=== PATIENT | male | born 1980 | race Caucasian/White ===

== ENCOUNTER 2020-06-28 12:37 | Emergency (ER) | payer MEDICARE, SELFPAY ==
[2020-06-28 12:44] VITALS: BP 160/98; PULSE 105; RESP 18; TEMP 36.6; O2SAT 100; BMI 36.6
--- NOTE | 2020-06-28 12:55 | ED_ITS ---
HPI - General Adult General: Chief complaint: General Medical Stated complaint: High HR, HTN, R leg pain Time Seen by Provider: 06/28/20 12:55 History of Present Illness: HPI narrative: Patient is a 39-year-old male who comes to the ED with multiple complaints. Patient has been having some chest pain for the past 3 to 4 days. Chest pain is mild and he describes it is constant and it does not get any worse when active. Patient did have Covid this month and says since recovering he has been having these symptoms of shortness of breath and chest pain. Shortness of breath occurs when he is up and active and moving around. Patient has albuterol inhaler that he uses as needed for shortness of breath. Endorses a dry cough. He did state that since he got Covid for the past month he has not been very active and has been doing a lot of sitting and laying down. He is complaining of nontraumatic right leg pain that started yesterday. He says pain is in the back of his right thigh just above his knee. Denies any history of blood clots or DVTs. His PCP just recently diagnosed him with hypertension and his heart rate was elevated and prescribed him some atenolol. He has not started taking atenolol yet. He is also complained of having some episodes of right arm numbness and tingling that lasts for approximately an hour. Denies any recent fever, chills, nausea/vomiting, abdominal pain, bladder or bowel symptoms. Associated symptoms: Reports chest pain and dyspnea; Deny headache(s), nausea, rash, palpitations or vomiting Review of Systems Const: Denies: fever(s), chills or fatigue Eyes: Denies: change in vision or eye discomfort ENMT: Denies: throat pain, odynophagia, nasal discharge or nasal congestion Card: Reports: chest pain; Denies: palpitations, edema, swelling of feet/ankles, dyspnea on exertion or orthopnea Resp: Reports: dyspnea and non-productive cough; Denies: productive cough GI: Denies: abdominal pain, nausea, vomiting, diarrhea, constipation or hematochezia : Denies: flank pain, difficulty urinating, dysuria or hematuria Musc: Reports: extremity pain (right leg pain non acute); Denies: neck pain, back pain or extremity swelling Skin/Breast: Denies: rash or new lesions Neuro: Denies: headache(s), numbness in extremities or weakness in extremities PFSH ED PFSH: Social History Smoking and tobacco status: never smoked Alcohol intake: never Substance/Drug Use: never Physical Exam Const: COMMON NORMALS: no acute distress, patient oriented x3 and alert GENERAL APPEARANCE: cooperative and comfortable HENMT: COMMON NORMALS: normocephalic HEAD & SCALP: normocephalic MOUTH: Normal oral and palatal mucosa present THROAT: posterior oropharynx normal and uvula midline Neck/C-Spine: COMMON NORMALS: supple GENERAL: Yes normal visual inspection Resp: COMMON NORMALS: normal respiratory effort, No retractions, No use of accessory muscles and clear to auscultation bilaterally EFFORT & INSPECTION: Yes able to speak in complete sentences, No tachypneic, No respiratory distress and No labored AUSCULTATION: clear to auscultation bilaterally Cardio: COMMON NORMALS: regular rate, regular rhythm, S1 normal heart sound present, S2 normal heart sound present, No gallops present (Cardio), No clicks present (Cardio), No murmurs present (Cardio) and Peripheral pulses 2+ throughout RATE: regular rate RHYTHM: regular rhythm HEART SOUNDS: S1 normal heart sound present and S2 normal heart sound present PERIPHERAL PULSES: Peripheral pulses 2+ throughout GI: COMMON NORMALS: Normal to inspection, nondistended, normoactive bowel sounds present, Soft to palpation, non-tender and no masses PALPATION: Yes Soft to palpation : COMMON NORMALS: Yes no CVA tenderness BLADDER/KIDNEY EXAM: Yes no CVA tenderness Back/Pelvis: COMMON NORMALS: no CVA tenderness Extremity: COMMON NORMALS: no calf tenderness and no pedal edema NARRATIVE EXTREMITY EXAM: Right leg?pedal pulse 2+. No edema seen. Some tenderness in posterior aspect of right thigh just superior to the knee. GENERAL: Yes normal exam except as noted Neuro: COMMON NORMALS: patient oriented x3 and moves all extremities SENSORIUM/ORIENTATION: Yes alert Skin: GENERAL SKIN EXAM: dry skin Course Vital Signs: Vital signs: Vital Signs Temperature 97.8 F 06/28/20 12:44 Pulse Rate 81 06/28/20 16:39 Respiratory Rate 17 06/28/20 16:39 Blood Pressure 146/110 06/28/20 16:39 Pulse Oximetry 97 06/28/20 16:39 MDM - General Adult MDM Narrative: Medical decision making narrative: Patient is a 39-year-old male who comes to the ED with chest pain and some right lower extremity nontraumatic pain. Patient had COVID-19 earlier this month and since he is recovered from it he says he has chest pain and some shortness of breath. Patient appears in no acute distress or respiratory distress upon exam. Lungs were clear to auscultation bilaterally. Vitals stable. Chest x-ray shows no acute findings. CBC, CMP were unremarkable. D-dimer normal. EKG showed normal sinus rhythm and no signs of CO and troponin negative. CV venous duplex of right lower extremity showed no blood clots or DVTs. Patient does not currently have a PCP so I placed an order with case management for patient to be referred to PCP. Patient was diagnosed with noncardiac chest pain and I told him that I placed an order with case management and they should be contacting him in the next several days to set up an appointment with a PCP. Return to ED precautions given. Patient understood and agree with plan. Lab Data: Attestation: I reviewed the patient's lab results. Labs: Lab Results 06/28/20 06/28/20 06/28/20 Range/Units 14:00 14:00 14:00 WBC 7.7 (4.0-10.0) 10^3/ uL RBC 5.89 H (4.1-5.3) 10^6/u L Hgb 14.8 (11.7-16.6) g/dL Hct 47.1 (42.0-52.0) % MCV 80.0 (80-94) fL MCH 25.1 L (28.0-34.0) pg MCHC 31.4 (30.0-36.0) g/dL RDW 14.2 (12.1-15.1) % Plt Count 235 (130-400) 10^3/c mm MPV 10.3 (7.4-10.4) fL Neut % (Auto) 68.0 % Lymph % (Auto) 22.3 % [place] % (Auto) 6.1 % Eos % (Auto) 2.6 % Baso % (Auto) 0.4 % Neut # (Auto) 5.25 (1.8-7.7) 10^3/u L Lymph # (Auto) 1.7 (0.8-4.8) 10^3/u L [place] # (Auto) 0.5 (0.2-0.9) 10^3/u L Eos # (Auto) 0.2 (0.0-0.8) 10^3/u L Baso # (Auto) 0.0 (0.0-0.1) 10^3/u L Nucleated RBC % (a uto) 0 % Nucleated RBCs # 0.0 /100WBC D-Dimer <= 0.27 (0-0.59) ug/mIFE U Sodium 138 (136-145) mmol/L Potassium 4.1 (3.5-5.1) mmol/L Chloride 102 (98-107) mmol/L Carbon Dioxide 24 (22-29) mmol/L Anion Gap 16.1 (5-19) BUN 8 (6-20) mg/dL Creatinine 0.6 L (0.7-1.2) mg/dL GFR Calculation 151.6 H (90-130) mL/min Glucose 100 (65-115) mg/dL Calculated Osmolal ity 284 L (285-295) mOsm/k g Calcium 9.5 (8.5-10.5) mg/dL Total Bilirubin 0.8 (0.15-1.2) mg/dL AST 20 (0-40) U/L ALT 53 H (0-41) U/L Alkaline Phosphata se 156 H (40-130) IU/L Troponin T Baselin e (0-15) ng/L Total Protein 7.0 (6.6-8.7) g/dL Albumin 4.3 (3.5-5.2) g/dL Globulin 2.7 (1.3-4.6) g/dL 06/28/20 Range/Units 14:00 WBC (4.0-10.0) 10^3/ uL RBC (4.1-5.3) 10^6/u L Hgb (11.7-16.6) g/dL Hct (42.0-52.0) % MCV (80-94) fL MCH (28.0-34.0) pg MCHC (30.0-36.0) g/dL RDW (12.1-15.1) % Plt Count (130-400) 10^3/c mm MPV (7.4-10.4) fL Neut % (Auto) % Lymph % (Auto) % [place] % (Auto) % Eos % (Auto) % Baso % (Auto) % Neut # (Auto) (1.8-7.7) 10^3/u L Lymph # (Auto) (0.8-4.8) 10^3/u L [place] # (Auto) (0.2-0.9) 10^3/u L Eos # (Auto) (0.0-0.8) 10^3/u L Baso # (Auto) (0.0-0.1) 10^3/u L Nucleated RBC % (a uto) % Nucleated RBCs # /100WBC D-Dimer (0-0.59) ug/mIFE U Sodium (136-145) mmol/L Potassium (3.5-5.1) mmol/L Chloride (98-107) mmol/L Carbon Dioxide (22-29) mmol/L Anion Gap (5-19) BUN (6-20) mg/dL Creatinine (0.7-1.2) mg/dL GFR Calculation (90-130) mL/min Glucose (65-115) mg/dL Calculated Osmolal ity (285-295) mOsm/k g Calcium (8.5-10.5) mg/dL Total Bilirubin (0.15-1.2) mg/dL AST (0-40) U/L ALT (0-41) U/L Alkaline Phosphata se (40-130) IU/L Troponin T Baselin e 6 (0-15) ng/L Total Protein (6.6-8.7) g/dL Albumin (3.5-5.2) g/dL Globulin (1.3-4.6) g/dL Imaging Data^: CXR: Attestation: I personally reviewed and interpreted this imaging study as follows: Radiologist's impression: [address] [address] XRay Report Signed Patient: Sunday Zuniga Unit #: [id number] : 1980 Acct#:[id number] Age/Sex: 39 / M ADM Date: 06/28/20 Loc: ER Room/Bed: Attending Dr: Ordering Provider/Ordering MD: Ronnell Santos Date of Service: 06/28/20 Procedure(s): XR chest 1V portable [id number] Accession Number(s): [id number] Report Number: [id number] PROCEDURE INFORMATION: Exam: XR Chest, 1 View Exam date and time: 06/28/2020 1:27 PM Age: 39 years old Clinical indication: Chest pain; Additional info: Cp TECHNIQUE: Imaging protocol: XR of the chest Views: 1 view. COMPARISON: No relevant prior studies available. FINDINGS: Lungs: Unremarkable. No consolidation. Pleural spaces: Unremarkable. No pleural effusion. No pneumothorax. Heart/Mediastinum: Unremarkable. No cardiomegaly. Bones/joints: Unremarkable. XR/XR chest 1V portable [id number] IMPRESSION: No acute findings. Dictated By: Mark Wilder Signed By: Mark Wilder Signed Date/Time: 06/28/20 1355 DD/ 1354 Vascular: Attestation: I personally reviewed and interpreted this imaging study as follows: Radiologist's impression: Ultrasound venous duplex of right lower extremity?prelim report no DVTs or blood clots seen. EKG Data^: EKG 1: Attestation: I personally reviewed and interpreted this EKG as follows: EKG interpretation date: 06/28/20 Interpretation: Normal sinus rhythm, [address] segment elevation or depression seen. Computer generated interpretation: Chest X-Ray 06/28/20 13:18 IMPRESSION: No acute findings. Venous Duplex 06/28/20 13:18 IMPRESSION: No evidence of deep vein thrombosis. Discharge Plan Discharge Patient Disposition: Home Clinical Impression: Non-cardiac chest pain Condition: Stable Prescriptions: No Action albuterol sulfate 90 mcg/actuation HFA aerosol inhaler 2 puff INHALATION Q4H PRN (Reason: Shortness Of Breath) RF: 0 Discharge Orders: Discharge ED (Routine); Ordered 06/28/20 Ordered By: Ronnell Santos Discharge Diet: Regular Discharge Activity: Increase activity as tolerated Patient Instructions: Noncardiac Chest Pain (ED) Activity Restrictions/Additional Instructions: Follow-up with medical provider as directed. Case management should be contacting you in the next several days to set up an appointment with the PCP. Discuss with your doctor about your current symptoms and episodes of elevated heart rate. Return to the ER or your medical provider if condition worsens. Please read and understand discharge instructions. If any questions, please ask. Coding Level of Care Code ED Burring Wheel Operator for Santos Fwd Exam Comprehensive
[2020-06-28 13:01] VITALS: BP 114/96; PULSE 100; RESP 17; O2SAT 100
--- NOTE | 2020-06-28 13:18 | USR_ITS ---
PROCEDURE INFORMATION: Exam: US Duplex Right Lower Extremity Veins, Limited Exam date and time: 06/28/2020 1:59 PM Age: 39 years old Clinical indication: Pain; Leg, upper and leg, lower; Right; Additional info: Non traumatic right lower leg pain TECHNIQUE: Imaging protocol: Real-time Duplex ultrasound of the Right Lower Extremity with 2-D mcdonald scale, color Doppler flow and spectral waveform analysis with image documentation. Limited exam was focused on the right lower extremity veins. COMPARISON: No relevant prior studies available. FINDINGS: Right deep veins: Unremarkable. The common femoral, femoral, proximal profunda femoral and popliteal veins are patent without thrombus. Normal Doppler waveforms. Normal compressibility and/or augmentation response. Right superficial veins: Unremarkable. Saphenofemoral junction is patent without thrombus. Soft tissues: Unremarkable. US/[place] [id number] IMPRESSION: No evidence of deep vein thrombosis.
--- NOTE | 2020-06-28 13:18 | XRR_ITS ---
PROCEDURE INFORMATION: Exam: XR Chest, 1 View Exam date and time: 06/28/2020 1:27 PM Age: 39 years old Clinical indication: Chest pain; Additional info: Cp TECHNIQUE: Imaging protocol: XR of the chest Views: 1 view. COMPARISON: No relevant prior studies available. FINDINGS: Lungs: Unremarkable. No consolidation. Pleural spaces: Unremarkable. No pleural effusion. No pneumothorax. Heart/Mediastinum: Unremarkable. No cardiomegaly. Bones/joints: Unremarkable. XR/XR chest 1V portable [id number] IMPRESSION: No acute findings.
--- NOTE | 2020-06-28 13:19 | ECG_ITS ---
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 Measurements Intervals [place] Rate: 89 P: 10 GA: 177 QRS: -21 QRSD: 100 T: 25 QT: 339 QTc: 414 Interpretive Statements SINUS RHYTHM LOW QRS VOLTAGE IN PRECORDIAL LEADS [QRS DEFLECTION < 1.0 mV IN CHEST LEADS] VOLTAGE CRITERIA FOR LVH [MEETS CRITERIA IN ONE OF: R(aVL), S(V1), R(V5), R(V5/V6)+S(V1)] POSSIBLE ANTERIOR MYOCARDIAL INFARCTION , OF INDETERMINATE AGE [30 ms Q WAVE IN V3/V4, OR R < 0.2 mV IN V4] No previous ECG available for comparison Electronically Signed On 06-28-2020 16:57:37 JAVA FRONT END WEB DEVELOPER by Tamir Sheth M.D. [email or web address] [email or web address] issaqu[facility] community hospitalSn[email or web address]/store/[id number] f
[2020-06-28 13:30] VITALS: BP 131/90; PULSE 85; RESP 18; O2SAT 96
[2020-06-28 13:48] VITALS: BP 131/89; PULSE 83; RESP 16; O2SAT 97
[2020-06-28 14:22] LABS: Basophils % 0.4 %; Eosinophils # 0.2 10^3/uL (0.0-0.8); Eosinophils % 2.6 %; Hematocrit 47.1 % (42.0-52.0); Hemoglobin 14.8 g/dL (11.7-16.6); Lymphocytes # 1.7 10^3/uL (0.8-4.8); Lymphocytes % 22.3 %; Mean Corpuscular HGB Conc 31.4 g/dL (30.0-36.0); Mean Corpuscular Hemoglobin 25.1 pg (28.0-34.0); Mean Platelet Volume 10.3 fL (7.4-10.4); Monocytes # 0.5 10^3/uL (0.2-0.9); Monocytes % 6.1 %; Neutrophils # 5.25 10^3/uL (1.8-7.7); Nucleated Red Blood Cells % 0 %; Platelet Count 235 10^3/cmm (130-400); Red Blood Count 5.89 10^6/uL (4.1-5.3); Red Cell Distribution Width 14.2 % (12.1-15.1); White Blood Count 7.7 10^3/uL (4.0-10.0)
[2020-06-28] MEDS: lidocaine 2% viscous 15 ML, aluminum-mag hydrox-simethicon 30 ML, sucralfate oral liq 1 GM PO (14:26)
[2020-06-28 14:49] LABS: Alanine Aminotransferase 53 U/L (0-41); Albumin Level 4.3 g/dL (3.5-5.2); Alkaline Phosphatase 156 IU/L (40-130); Anion Gap 16.1 (5-19); Aspartate Amino Transferase 20 U/L (0-40); Blood Urea Nitrogen 8 mg/dL (6-20); Calcium 9.5 mg/dL (8.5-10.5); Carbon Dioxide 24 mmol/L (22-29); Chloride 102 mmol/L (98-107); Globulin 2.7 g/dL (1.3-4.6); Glomerular Filtration Rate 151.6 mL/min (90-130); Glucose 100 mg/dL (65-115); Osmolality Calculated 284 mOsm/kg (285-295); Potassium 4.1 mmol/L (3.5-5.1); Sodium 138 mmol/L (136-145); Total Bilirubin 0.8 mg/dL (0.15-1.2)
[2020-06-28 15:01] LABS: Troponin(5th) Baseline 6 ng/L (0-15)
[2020-06-28 15:54] LABS: D Dimer <= 0.27 ug/mIFEU (0-0.59)
[2020-06-28 16:39] VITALS: BP 146/110; PULSE 81; RESP 17; O2SAT 97
--- NOTE | 2020-06-29 14:59 | DCPLANNER ---
Addendum entered by Tamra Mancuso 06/29/20 15:07: Patients called social work case manager back, patient is needing to get established with a primary care physician. publication manager called [facility] in [facility], patient has a follow up appointment scheduled for Monday, July 06, 2020 at 9:[address] Johns. publication manager called patients and gave her the appointment information. Original Note: publication manager had message to speak with patient about getting established with a primary care physician. publication manager unable to speak with patient at this time.
--- NOTE | 2020-08-13 14:59 | DCPLANNER ---
Patient had a follow up appointment scheduled for 07.06.20 at [facility] - patient did not attend appointment.
== END 2020-06-28 16:40 | disposition home or self-care (01) ==
PROVIDERS: Emergency Provider Physician Assistant
DX: R07.89 Other chest pain (principal)
CPT/HCPCS: 12345; 71045; 80053; 84484; 85025; 85378; 93005; 93971; 99283; 99284

== ENCOUNTER 2022-05-02 11:13 | Emergency (ER) | payer MEDICARE, SELFPAY ==
[2022-05-02 11:41] VITALS: BP 153/98; PULSE 90; RESP 16; TEMP 36.6; O2SAT 98
--- NOTE | 2022-05-02 11:55 | XR_ITS ---
WS: [id number] PORTABLE CHEST HISTORY: thinks he has fish bone in his throat COMPARISON: 06/28/2020 No radiopaque foreign body noted along the midline of the chest or neck. Lungs are clear and well expanded. No pleural effusion or pneumothorax. Cardiac size: Normal. Mediastinum/Aorta: Normal mediastinum. No osseous abnormality seen. XR/XR chest 1V portable [id number] IMPRESSION: Unremarkable portable chest.
--- NOTE | 2022-05-02 12:16 | W.ED.GENADLT ---
HPI - General Adult General: Chief complaint: Airway/Esophagus Foreign Body Stated complaint: object in throat Time Seen by Provider: 05/02/22 11:55 History of Present Illness: Patient is a 41-year-old male who comes to the ED with throat complaint. Patient says he was eating some fish about a week ago and swallowed a bone. He has been having pain in the back of his throat since he swallowed fish with bone. He is able to eat and drink without any problems and his oral secretions are normal. Denies any trouble breathing. Associated symptoms: Deny chest pain, dyspnea, headache(s), nausea, rash, palpitations or vomiting Review of Systems Const: Denies: fever(s), chills or fatigue Eyes: Denies: change in vision or eye discomfort ENMT: Reports: odynophagia; Denies: throat pain, nasal discharge or nasal congestion Card: Denies: chest pain, palpitations, edema, swelling of feet/ankles, dyspnea on exertion or orthopnea Resp: Denies: dyspnea, productive cough or non-productive cough GI: Denies: abdominal pain, nausea, vomiting, diarrhea, constipation or hematochezia : Denies: flank pain, difficulty urinating, dysuria or hematuria Musc: Denies: neck pain, back pain or extremity swelling Skin/Breast: Denies: rash or new lesions Neuro: Denies: headache(s), numbness in extremities or weakness in extremities PFSH ED PFSH: Social History Smoking and tobacco status: never smoked Alcohol intake: never Physical Exam Const: COMMON NORMALS: no acute distress, patient oriented x3, healthy appearing and alert GENERAL APPEARANCE: cooperative and comfortable HENMT: COMMON NORMALS: normocephalic HEAD & SCALP: normocephalic MOUTH: Normal oral and palatal mucosa present THROAT: posterior oropharynx normal and uvula midline OTHER: Posterior oropharynx exam is normal. Neck/C-Spine: COMMON NORMALS: supple GENERAL: Yes normal visual inspection Resp: COMMON NORMALS: normal respiratory effort, No retractions, No use of accessory muscles and clear to auscultation bilaterally AUSCULTATION: clear to auscultation bilaterally Cardio: COMMON NORMALS: regular rate, regular rhythm, S1 normal heart sound present, S2 normal heart sound present, No gallops present (Cardio), No clicks present (Cardio), No murmurs present (Cardio) and Peripheral pulses 2+ throughout RATE: regular rate RHYTHM: regular rhythm HEART SOUNDS: S1 normal heart sound present and S2 normal heart sound present PERIPHERAL PULSES: Peripheral pulses 2+ throughout GI: COMMON NORMALS: Normal to inspection, nondistended, normoactive bowel sounds present, Soft to palpation, non-tender and no masses PALPATION: Yes Soft to palpation : COMMON NORMALS: Yes no CVA tenderness BLADDER/KIDNEY EXAM: Yes no CVA tenderness Back/Pelvis: COMMON NORMALS: no CVA tenderness Extremity: COMMON NORMALS: normal to inspection Neuro: COMMON NORMALS: patient oriented x3 SENSORIUM/ORIENTATION: Yes alert GAIT: Yes Normal gait present Skin: GENERAL SKIN EXAM: dry skin Course Vital Signs: Vital signs: Vital Signs Temperature 97.9 F 05/02/22 11:41 Pulse Rate 90 05/02/22 11:41 Respiratory Rate 16 05/02/22 11:41 Blood Pressure 153/98 05/02/22 11:41 Pulse Oximetry 98 05/02/22 11:41 [facility] - General Adult Medical Decision Making Patient is a 41-year-old male who comes to the ED with throat complaint. Patient says he was eating some fish about a week ago and swallowed a bone. He has been having pain in the back of his throat since he swallowed fish with bone. He is able to eat and drink without any problems and his oral secretions are normal. Denies any trouble breathing. Vitals are stable. Patient appears nontoxic in no acute distress or pain. He is having normal oral secretions and is managing them well. Rest of exam is benign. Chest x-ray shows no acute findings. He is denying pain with swallowing stable for discharge home. He was told to follow-up with his PCP within the next week for reevaluation. Strict return to ED precautions given. Patient understood and agreed with plan. Lab Data Radiology Impressions Chest X-Ray 05/02/22 11:55 IMPRESSION: Unremarkable portable chest. Discharge Plan Discharge Patient Disposition: Home Clinical Impression: Pain with swallowing Condition: Stable Prescriptions: No Action esomeprazole magnesium [Nexium] 40 mg capsule,delayed release(DR/EC) 40 mg PO DAILY Qty: 90 3RF magnesium oxide 400 mg magnesium capsule 400 mg PO DAILY Qty: 90 3RF Discharge Orders: Discharge ED (Routine); Ordered 05/02/22 Ordered By: Ronnell Santos Referrals: Leobardo Sofia [Primary Care Provider] - Discharge Diet: Regular Discharge Activity: Resume usual activity Activity Restrictions/Additional Instructions: Follow-up with medical provider as directed in the next 5-7 days for reevaluation. Take medications as prescribed. Return to the ER or your medical provider if condition worsens. Please read and understand discharge instructions. Thank you for choosing [facility] for your healthcare needs today. Please realize this is an emergency room and that we are providing you with a medical screening exam and this may not be complete and all inclusive of all the testing and or work up that you may need to determine your ailment or severity of your illness. It is very important that you follow up as instructed or that you return to the Emergency Department should you have concerns or if your condition changes or worsens in any way. Coding Level of Care Code ED Solar Pv Installer for Santos [place] Exam Comprehensive
== END 2022-05-02 12:45 | disposition home or self-care (01) ==
PROVIDERS: Emergency Provider Physician Assistant; PCP Student in an Organized Health Care Education/Training Program
DX: R13.19 Other dysphagia (principal)
CPT/HCPCS: 71045; 99283